=== PATIENT | female | born 1960 | race Caucasian/White ===

== ENCOUNTER 2019-07-30 10:37 | Emergency (ER) | payer OTHER ==
[~2019-07-30] VITALS: Ht 160 cm; Wt 66.7 kg
[2019-07-30 10:43] VITALS: BP_SYST 136
--- NOTE | 2019-07-30 10:45 | NUR ---
Patient to ER bed 3 to gown for evaluation. Side rails up.
--- NOTE | 2019-07-30 10:55 | NUR ---
pt arrives from home w/ c/o right sided lower back pain 03/08. pt also reports a "sensation of swelling" to the right groin. No other c/o at the moment
--- NOTE | 2019-07-30 11:07 | NUR ---
ER at bedside examining patient.
[2019-07-30] MEDS ORDERED: KETOROLAC TROMETHAMINE 30 MG VIAL IM ONE (11:30)
--- NOTE | 2019-07-30 11:30 | NUR ---
medicated the pt w/ Toradol per MD order. Will reassess.
[2019-07-30 11:54] LABS: BILIRUBIN,URINE NEGATIVE (NEGATIVE); CLARITY/URINE CLEAR (CLEAR); COLOR,URINE YELLOW (YELLOW); GLUCOSE,URINE NEGATIVE (NEGATIVE); KETONES,URINE NEGATIVE (NEGATIVE); LEUKOCYTE ESTERASE ,URINE NEGATIVE (NEGATIVE); NITRITE, URINE NEGATIVE (NEGATIVE); PROTEIN URINE NEGATIVE (NEGATIVE); UROBILINOGEN,URINE 0.2 (0.2-1.0)
[2019-07-30 12:00] LABS: BLOOD, URINE TRACE (NEGATIVE)
--- NOTE | 2019-07-30 12:50 | NUR ---
pt reports feeling better. Current low back pain 3/10
[2019-07-30 12:55] LABS: BACTERIA,URINE RARE /HPF (None Seen); MUCUS,URINE 1+ /LPF (None Seen); RBC,URINE 0-3 /HPF (0-3); WBC,URINE 0-3 /HPF (0-3)
--- NOTE | 2019-07-30 13:20 | NUR ---
care endorsed to Sury FRENCH.
[2019-07-30 14:22] VITALS: BP_SYST 136
--- NOTE | 2019-07-30 14:24 | NUR ---
Patient given written and verbal discharge instructions and verbalizes understanding. ER MD discussed with patient the results and treatment provided. Patient in stable condition. ID arm band removed. Rx of Ibuprofen and Tylenol given. Patient educated on pain management and to follow up with PMD. Pain Scale 3/10. Opportunity for questions provided and answered. Medication side effect fact sheet provided.
== END 2019-07-30 14:22 | disposition home or self-care (01) ==
LOC: SED 10:37
DX: M54.5 Low back pain (principal); K57.90 Diverticulosis of intestine, part unspecified, without perforation or abscess without bleeding; K44.9 Diaphragmatic hernia without obstruction or gangrene
CPT/HCPCS: 74176; 81000; 96372; 99284; J1885

== ENCOUNTER 2019-08-29 13:52 | Emergency (ER) | payer OTHER ==
[~2019-08-29] VITALS: Ht 162.6 cm; Wt 66.7 kg
[2019-08-29 14:15] VITALS: BP_SYST 139
--- NOTE | 2019-08-29 14:20 | NUR ---
Patient triaged and placed in waiting room. VSS and patient appears in no acute distress at this time. Awaiting available bed, and MD notified of need for MSE.
[2019-08-29] MEDS ORDERED: KETOROLAC TROMETHAMINE 60 MG/2 ML VIAL IM ONE (15:15)
--- NOTE | 2019-08-29 15:30 | NUR ---
Patient to hallway chair to gown for evaluation. Side rails up.
--- NOTE | 2019-08-29 15:32 | NUR ---
Patient brought in complaining of right lower back pain severe radiating to right upper thigh for last 7 days. Denies any fever, nausea, vomiting or diarrhea. No other complaints/injuries per patient or as noted. Will continue to monitor.
--- NOTE | 2019-08-29 15:35 | NUR ---
[facility] Cardenas examining patient.
[2019-08-29] MEDS ORDERED: MORPHINE SULFATE 10 MG/ML VIAL IM ONE (15:45)
[2019-08-29] MEDS ORDERED: DIPHENHYDRAMINE INJ 50 MG/ML VIAL IM ONE (15:45)
[2019-08-29 16:59] VITALS: BP_SYST 128
--- NOTE | 2019-08-29 16:59 | NUR ---
Patient given written and verbal discharge instructions and verbalizes understanding. ER MD discussed with patient the results and treatment provided. Patient in stable condition. ID arm band removed. Rx of Prednisone, Motrin and Wentworth given. Patient educated on pain management and to follow up with PMD. Pain Scale 0/10 Opportunity for questions provided and answered. Medication side effect fact sheet provided.
== END 2019-08-29 16:59 | disposition home or self-care (01) ==
LOC: SED 13:52
DX: M54.31 Sciatica, right side (principal); R03.0 Elevated blood-pressure reading, without diagnosis of hypertension; E78.00 Pure hypercholesterolemia, unspecified
CPT/HCPCS: 96372; 99284; J1200; J1885; J2270

== ENCOUNTER 2020-04-27 10:42 | Emergency (ER) | payer OTHER ==
[~2020-04-27] VITALS: Ht 157.5 cm; Wt 63.5 kg
[2020-04-27] MEDS ORDERED: ONDANSETRON 4 MG ODT TAB PO ONE (11:15)
[2020-04-27] MEDS ORDERED: fentaNYL CITRATE/PF 100 MCG/2 ML AMP IM ONE (11:15)
[2020-04-27] MEDS ORDERED: KETOROLAC TROMETHAMINE 60 MG/2 ML VIAL IM ONE (11:15)
[2020-04-27 12:37] VITALS: BP_SYST 135
== END 2020-04-27 12:38 | disposition home or self-care (01) ==
LOC: SED 10:42
DX: S39.012A Strain of muscle, fascia and tendon of lower back, initial encounter (principal); E78.00 Pure hypercholesterolemia, unspecified; X50.0XXA Overexertion from strenuous movement or load, initial encounter; Y93.89 Activity, other specified; Y92.89 Other specified places as the place of occurrence of the external cause; Y99.8 Other external cause status
CPT/HCPCS: 96372; 99284; J1885; J3010; Q0162

== ENCOUNTER 2023-06-02 23:47 | Emergency (ER) | payer OTHER ==
[~2023-06-02] VITALS: Ht 160 cm; Wt 62.6 kg
[2023-06-03 00:03] VITALS: BP_SYST 151; PULSE 88; RESP 18; TEMP 98.1; O2SAT 98
[2023-06-03] MEDS ORDERED: MORPHINE 2 MG/ML INJ. SYRINGE IVP ONE (00:15)
[2023-06-03] MEDS ORDERED: ENALAPRILAT DIHYDRATE 1.25 MG/ML VIAL IVP ONE (00:15)
[2023-06-03] MEDS ORDERED: ONDANSETRON HCL 4 MG/2 ML VIAL IVP ONE (00:15)
[2023-06-03 00:50] LABS: BASOPHILS # (AUTO) 0.1 K/uL (0.0-0.2); BASOPHILS % (AUTO) 1.1 % (0.0-2.0); EOSINOPHILS # (AUTO) 0.1 K/uL (0.0-0.4); HEMATOCRIT 40.8 % (36-48); HEMOGLOBIN 13.4 g/dL (12.0-16.0); LYMPHOCYTES # (AUTO) 2.5 K/uL (1.0-5.5); LYMPHOCYTES % (AUTO) 38.8 % (20.5-51.5); MEAN CORPUSCULAR HEMOGLOBIN 28 pg (27-31); MEAN CORPUSCULAR HGB CONC 33 % (32-36); MEAN CORPUSCULAR VOLUME 86 fL (79.0-98.0); MONOCYTES # (AUTO) 0.5 K/uL (0.0-1.0); MONOCYTES % (AUTO) 8.6 % (1.7-9.3); NEUTROPHILS # (AUTO) 3.2 K/uL (1.8-7.7); NEUTROPHILS % (AUTO) 50.5 % (40.0-70.0); PLATELET COUNT (AUTO) 299 K/uL (130-430); RED BLOOD CELL COUNT(AUTO) 4.72 MIL/uL (4.2-6.2); RED CELL DISTRIBUTION WIDTH 13.6 % (9.0-15.0); WHITE BLOOD COUNT (AUTO) 6.3 K/uL (4.8-10.8)
[2023-06-03] MEDS ORDERED: LISI1TAB57 PO (00:57)
[2023-06-03 01:24] VITALS: BP_SYST 141; PULSE 80; RESP 18; TEMP 98.3; O2SAT 97
[2023-06-03 01:30] LABS: ALBUMIN 4.2 g/dL (3.4-4.8); CALCIUM 9.4 mg/dL (8.4-11.0); CREATININE 0.54 mg/dL (0.55-1.30); POTASSIUM 3.8 mmol/L (3.5-5.1); TOTAL BILIRUBIN 1.2 mg/dL (0.0-1.0)
== END 2023-06-03 02:03 | disposition home or self-care (01) ==
LOC: SED 23:47
DX: R51.9 Headache, unspecified (principal); I10 Essential (primary) hypertension; E78.00 Pure hypercholesterolemia, unspecified; Z79.899 Other long term (current) drug therapy
CPT/HCPCS: 99284; 80053; 85025; 36415; 96374; 96375; J2405; J2270

== ENCOUNTER 2024-03-06 19:41 | Emergency (ER) | payer OTHER ==
[~2024-03-06] VITALS: Ht 160 cm; Wt 62.6 kg
[~2024-03-06 19:41] MED LIST: LISI1TAB57 PO
[2024-03-06 19:48] VITALS: BP_SYST 131; PULSE 75; RESP 19; TEMP 97.5; O2SAT 96
[2024-03-06] MEDS: KETOROLAC TROMETHAMINE 30 MG VIAL IM ONE (20:23)
[2024-03-06] MEDS ORDERED: DICL20GE TP (21:17)
[2024-03-06] MEDS ORDERED: DICL50TA9 PO (21:17)
[2024-03-06 21:23] VITALS: BP_SYST 131; PULSE 75; RESP 19; TEMP 97.5; O2SAT 96
== END 2024-03-06 21:23 | disposition home or self-care (01) ==
LOC: SED 19:41
DX: S46.811A Strain of other muscles, fascia and tendons at shoulder and upper arm level, right arm, initial encounter (principal); I10 Essential (primary) hypertension; Z79.899 Other long term (current) drug therapy; X58.XXXA Exposure to other specified factors, initial encounter; Y93.89 Activity, other specified; Y92.89 Other specified places as the place of occurrence of the external cause; Y99.8 Other external cause status
CPT/HCPCS: 99284; 73030; 73060; 73080; 73090; 96372; J1885